=== PATIENT | female | born 1995 | race Caucasian/White ===

== ENCOUNTER 2018-07-05 08:55 | Outpatient (CLI) | payer BC, SELFPAY ==
[2018-07-05 09:34] LABS: HCT 41.8 % (36.0-46.0); HGB 14.1 g/dL (12.0-15.5); Mean Corp. HGB Concentration 33.7 g/dL (32.0-36.0); Mean Corpuscular Hemoglobin 30.7 pg (27.0-33.0); Mean Corpuscular Volume 90.9 fL (80-95); Mean Platelet Volume 10.9 fL (8.0-11.0); Platelet Count 218 x1000/uL (130-400); RBC Distribution Width 12.4 % (11.7-14.6)
[2018-07-05 09:54] LABS: Hemoglobin A1C 5.2 % (4.5-6.2)
[2018-07-05 10:21] LABS: Iron 54 ug/dL (50-175)
[2018-07-05 10:32] LABS: ALT 21 U/L (12-78); AST 15 U/L (15-37); Alkaline Phosphatase 54 U/L (46-116); Anion Gap 10.4 mmol/L (3-11); BUN 15 mg/dL (7-18); Bilirubin, Total 0.5 mg/dL (0.2-1.0); CO2 27.6 mmol/L (21.0-32.0); CREATININE 0.94 mg/dL (0.55-1.02); Calcium 9.3 mg/dL (8.5-10.1); Chloride 104 mmol/L (98-107); Ferritin 68 ng/mL (8-388); Glucose 64 mg/dL (70-100); Potassium 4.3 mmol/L (3.5-5.1); Sodium 142 mmol/L (136-145); TSH (W/Ref FT4) 1.59 uIU/mL (0.358-3.74); Total Protein 7.3 g/dL (6.4-8.2)
== END 2018-07-05 09:15 ==
PROVIDERS: PCP Family Medicine; Visit Provider Family Medicine
DX: J45.991 Cough variant asthma (principal); R53.83 Other fatigue
CPT/HCPCS: 36415; 80053; 85027; 82728; 83036; 83540; 84443

== ENCOUNTER 2019-04-03 15:21 | Outpatient (CLI) | payer OTHER, SELFPAY ==
[2019-04-04 11:02] LABS: Hepatitis B Surface Ag Negative (NEGAT); Hepatitis C Ab w Rflx HCV PCR Negative (NEGAT)
[2019-04-04 11:12] LABS: HIV-1/2 Ag & Ab Screen Negative (NEGAT)
[2019-04-05 10:29] LABS: Syphilis Total Ab w/Reflex Nonreactive (Nonreactive)
[2019-04-05 12:29] LABS: HSV Type 1 Ab, IgG Negative; HSV Type 2 Ab, IgG Negative
== END 2019-04-03 15:41 ==
PROVIDERS: PCP Family Medicine; Visit Provider Nurse Practitioner Women's Health
DX: Z11.3 Encounter for screening for infections with a predominantly sexual mode of transmission (principal); Z11.4 Encounter for screening for human immunodeficiency virus [HIV]; Z11.59 Encounter for screening for other viral diseases
CPT/HCPCS: 36415; 86803; 87340; 87389; 86695; 86696; 86780

== ENCOUNTER 2019-04-03 16:36 | Outpatient (REF) | payer OTHER, SELFPAY ==
[2019-04-05 15:45] LABS: Chlamydia Result Negative (Negative); GC Result Negative (Negative); Specimen Description CERVIX
== END 2019-04-03 16:56 ==
LOC: LBN 16:36
PROVIDERS: PCP Family Medicine; Visit Provider Nurse Practitioner Women's Health
DX: Z11.3 Encounter for screening for infections with a predominantly sexual mode of transmission (principal)
CPT/HCPCS: 87491; 87591

== ENCOUNTER 2019-04-08 01:41 | Outpatient (CLI) | payer OTHER, SELFPAY ==
--- NOTE | 2019-04-08 07:43 | DI.US_ITS ---
EXAM: US PELVIS TRANSVAGINAL CLINICAL HISTORY: R sided pelvic pain, hx ovarian cyst,R10.2 TECHNIQUE: Ultrasound performed using standard protocol. COMPARISON: No exams were available for comparison FINDINGS: The uterus measures 6.8 cm in length, 2.7 cm in height and 4.0 cm in width with an endometrial stripe thickness of 3.1 mm. A small quantity of fluid is noted in the cervix. Right ovary measures 3.6 x 2.0 x 1.5 cm and contains multiple follicular cysts. The dominant follicle in the right ovary measure s up to 1.8 cm. The left ovary was not visualized due to overlying bowel. Right kidney measures 10. 4 x 3.6 x 5.1 cm. The left kidney measures 10 x 5.1 x 4.5 cm. IMPRESSION: A small quantity of fluid is noted in the cervix. Multiple follicles are identified in the right ovar y, the largest of which measures 1.8 cm. The left ovary was not visualized.
== END 2019-04-08 02:01 ==
PROVIDERS: PCP Family Medicine; Visit Provider Nurse Practitioner Women's Health
DX: R10.2 Pelvic and perineal pain (principal); N83.01 Follicular cyst of right ovary
CPT/HCPCS: 76830; 76856

== ENCOUNTER 2019-05-27 00:09 | Outpatient (CLI) | payer OTHER, SELFPAY ==
--- NOTE | 2019-05-27 08:01 | DI.US_ITS ---
EXAM: US PELVIS TRANSVAGINAL CLINICAL HISTORY: Chronic pelvic pain, L>R TECHNIQUE: Ultrasound performed using standard protocol. Transabdominal and transvaginal exams wer e performed. COMPARISON: No exams were available for comparison FINDINGS: The uterus measures 6.8 x 2.8 x 3.2 cm. The endometrial stripe measures 2 millimeters in thickness. T here is a 3.6 centimeter hypoechoic lesion of the left ovary which is not ideally seen either transab dominally or transvaginally. This may represent a cyst or dominant follicle. The right ovary is unrem arkable. There is no evidence of free fluid or hydronephrosis. IMPRESSION: 3.6 centimeter cyst of the left ovary. It was not ideally seen on this exam. A follow-up exam could be considered.
== END 2019-05-27 00:29 ==
PROVIDERS: PCP Family Medicine; Visit Provider Nurse Practitioner Women's Health
DX: R10.2 Pelvic and perineal pain (principal); N83.292 Other ovarian cyst, left side
CPT/HCPCS: 76830; 76856

== ENCOUNTER 2019-08-20 11:25 | Outpatient (CLI) | payer OTHER, SELFPAY ==
[2019-08-20 13:04] LABS: HCT 41.5 % (36.0-46.0); HGB 13.9 g/dL (12.0-15.5); Mean Corp. HGB Concentration 33.5 g/dL (32.0-36.0); Mean Corpuscular Hemoglobin 30.1 pg (27.0-33.0); Mean Corpuscular Volume 89.8 fL (80-95); Mean Platelet Volume 11.2 fL (8.0-11.0); Platelet Count 242 x1000/uL (130-400); RBC 4.62 m/cumm (4.00-5.20); RBC Distribution Width 12.8 % (11.7-14.6); White Blood Cell Count 9.13 k/cumm (4.4-10.8)
[2019-08-20 13:21] LABS: Iron 84 ug/dL (50-170)
[2019-08-20 13:27] LABS: Ferritin 106 ng/mL (8-252)
--- NOTE | 2020-08-17 11:57 | NS.NUTBLAN_ITS ---
Date of service: 08/17/20 Time of Service: 11:58 Nutritional Consult ASSESSMENT: 25 year old female with nutrition consult to rule out dietary causes for abdominal pain. Spoke to Liseth on phone today after receiving a 4 day food record. Food record indicates 2-4 meals daily, often large portions. Liseth reports abdominal pain not related to meals or meal intake. Has tried gluten free diet in past without relief, has tried small portions in past with no relief. No family hx of food allergies, no changes in bowel habits. Digestion and bowel movement unremarkable. No routine exercise or stress relieving activities. BMI indicates class 2 obesity with 13 lbs weight gain in last year. INTERVENTION: Reviewed with Liseth reducing portion sizes and to eat 3 meals, 2 snacks daily and to maintain meal schedules from day to day. Suggestions provided have already been tried without success. At this time, dietary intervention have not reduced symptoms of abdominal pain. Encouraged daily exercise for stress relief as abdominal pain may be related to anxiety/stress. MONITORING AND EVALUATION: Liseth to follow up with magnetic tape typewriter operator rene. Contact information provided. Time Spent in Nutritional Counseling and Treatment: 15
== END 2019-08-20 11:45 ==
PROVIDERS: PCP Family Medicine; Visit Provider Family Medicine
DX: Z00.00 Encounter for general adult medical examination without abnormal findings (principal); R53.83 Other fatigue
CPT/HCPCS: 36415; 85027; 82728; 83540

== ENCOUNTER 2020-08-24 16:25 | Outpatient (REF) | payer BC, SELFPAY ==
--- NOTE | 2020-08-24 15:30 | PAPFT_PTH ---
PATIENT: Liseth Turpin LOC: [facility] U#:[id number] AGE/SX: 25/F ROOM: RE08/24/[address]: Ginny Salas MD, DC : 1995 BED: DIS: 08/24/2020 SPEC #: [id number] RECD: 08/25/20 12:42 STATUS: ISIDRO RELogan #: [id number] ANNMARIE: 08/24/20 15:[address]: Ginny Salas DEPT: [facility] Cytology RECD BY: Angi Moeller Tissues: 1 - CX/ENDOCX FOR PAP SMEARS Procedures: PAP THIN PREP/[facility] Screening Comments: [id number] (CHLAMYDIA/GC)
--- OUTSIDE RECORDS SUMMARY | 2020-08-24 16:29 | XMS_ITS ---
:1995 Author Care Team Providers Name Role Phone [facility] RECORDS Primary Care Provider [phone] AMADO MILLS Primary Care Provider [phone] Allergies Code Code System Name Reaction Severity Status Onset NKDA ? Medications Name Status Start Date Stop Date ? ? escitalopram 20 mg tablet Active ? Not av ailable Take 1 tablet every day by oral route. modafinil 200 mg tablet Active ? Not avai lable TAKE 1 TABLET BY MOUTH ONCE DAILY Nexplanon 68 mg subdermal implant Active ? Not available Inject by subcutaneous route. Ritalin 10 mg tablet Completed ? 11/15/2018 Take 1 tablet twice a day by oral route. Symbicort 80 mcg-4.5 mcg/actuation HFA aerosol inhaler Completed ? 09/24/2018 Inhale 2 puffs twice a day by inhalation route. Ventolin HFA 90 mcg/actuation aerosol inhaler Active ? Not available Inhale 2 puffs every 4 hours by inhalation route as needed. Problems Name Status Onset Date Source ? Major Depressive Disorder Active 07/02/2018 ? Hypersomnia Active 07/02/2018 ? Asthma Active 07/02/2018 ? Fatigue Active 07/02/2018 ? Restless Legs Active 07/05/2018 ? Excessive Daytime Sleepiness - Normal Night Active 06/19 ? Sleep Tachycardia Active 05/21/2019 ? Procedures None recorded. Results Lab Results Date Name Specimen Result Interpretation Description Value Range Status Address ? 08/29/2018 Drug UR - Thc negative neg (50 Final [place] Screen, NG/mL NG/mL) Hospital Lab Urine NG/mL (Internal) : [address] ? ? UR - Pcp negative neg (25 Final [place] NG[place]mL) [facility] L ab (Internal) : [address] ? ? UR - Dani negative neg (150 Final [place] NG/mL) Hospital L ab (Internal) : [address] ? ? UR - Met negative neg (500 Final [place] NG/mL) Hospital L ab (Internal) : [address] [place] ? ? UR - Opi negative neg (100 Final [place] NG/mL) Hospital L ab (Internal) : [address] [place] ? ? UR - Amp negative neg (500 Final [place] NG/mL) Hospital L ab (Internal) : [address] [place] ? ? UR - Bzo negative neg (150 Final [place] NG/mL) Hospital L ab (Internal) : [address] ? ? UR - Tca negative neg (300 Final [place] NG/mL) Hospital L ab (Internal) : [address] [place] ? ? UR - Mtd negative neg (200 Final [place] NG/mL) Hospital L ab (Internal) : [address] ? ? UR - Bar negative neg (200 Final [place] NG/mL) Hospital L ab (Internal) : [address] ? ? UR - Oxy negative neg (100 Final [place] NG/mL) Hospital L ab (Internal) : [address] [place] ? ? UR - Ppx negative neg (300 Final [place] NG/mL) Hospital L ab (Internal) : [address] ? ? 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 Social History Tobacco Smoking Status Never Smoker Vaccine List None recorded. Plan of Care Reminders Provider Appointments None ? ? recorded. Lab None ? ? recorded. Referral None ? ? recorded. Procedures None ? ? recorded. Surgeries None ? ? recorded. Imaging None ? ? recorded. Vitals 05/21/2019 08:30AM Office 15 Height Weight BMI Blood Pressure 167.64 cm 97.07 kg 34.5 kg/m2 124/82 mm[Hg] 11/15/2018 08:30AM Office 30 Height Weight BMI Blood Pressure 167.64 cm 95.12 kg 33.8 kg/m2 100/60 mm[Hg] 09/24/2018 09:15AM Office 30 Height Weight BMI Blood Pressure 167.64 cm 92.99 kg 33.1 kg/m2 122/70 mm[Hg] 07/05/2018 08:30AM New Patient 45 Height Weight BMI Blood Pressure 167.64 cm 90.04 kg 32 kg/m2 120/88 mm[Hg]
[2020-08-26 14:20] LABS: Chlamydia Result Positive (Negative); GC Result Negative (Negative)
== END 2020-08-24 16:26 | disposition home or self-care (01) ==
LOC: LBN 16:25
PROVIDERS: PCP Family Medicine; Visit Provider Family Medicine
DX: Z11.3 Encounter for screening for infections with a predominantly sexual mode of transmission (principal); Z12.4 Encounter for screening for malignant neoplasm of cervix
CPT/HCPCS: 87491; 87591; 88142

== ENCOUNTER 2020-10-05 15:22 | Outpatient (REF) | payer BC, SELFPAY ==
[2020-10-05 18:36] LABS: TSH (W/Ref FT4) 2.87 uIU/mL (0.36-3.74)
[2020-10-07 14:24] LABS: Chlamydia Result Negative (Negative); GC Result Negative (Negative)
== END 2020-10-05 15:23 | disposition home or self-care (01) ==
LOC: LBN 15:22
PROVIDERS: PCP Nurse Practitioner Adult Health; Visit Provider Nurse Practitioner Adult Health
DX: E66.9 Obesity, unspecified (principal); A56.2 Chlamydial infection of genitourinary tract, unspecified
CPT/HCPCS: 87491; 87591; 84443

== ENCOUNTER 2022-02-23 18:18 | Outpatient (REF) | payer BC, SELFPAY | END 2022-02-23 18:19 | disposition home or self-care (01) | LOC: LBN 18:18 | PROVIDERS: PCP Nurse Practitioner Adult Health; Visit Provider Nurse Practitioner Adult Health | DX: Z11.3 Encounter for screening for infections with a predominantly sexual mode of transmission (principal) | CPT/HCPCS: 87491; 87591; 87480; 87510; 87660 ==

== ENCOUNTER → 2022-03-01 14:21 | Outpatient (CLI) | payer BC, SELFPAY ==
--- NOTE | 2022-03-01 09:30 | DI.RAD_ITS ---
Exam(s) XR CERVICAL SPINE COMP 4-5V EXAM: XR CERVICAL SPINE COMP 4-5V CLINICAL HISTORY: vertebral alignment M54.2 CERVICALGIA NECK PAIN. TECHNIQUE: 2D digital imaging was performed. COMPARISON: No exams were available for comparison FINDINGS: BONES: No fracture or destructive lesion. Vertebral bodies are unremarkable. DISKS: Intervertebral disc spaces are maintained. ALIGNMENT: Cervical spinal alignment is within normal limits. The odontoid and atlantoaxial articulat ions are normal. SOFT TISSUE: Normal. The lung apices are clear. IMPRESSION: Unremarkable radiographs of the cervical spine. DATA REPOSITORY: RADIATION DOSE DELIVERED:
--- NOTE | 2022-03-01 09:30 | DI.RAD_ITS ---
Exam(s) XR THORACIC SPINE COMPLETE EXAM: XR THORACIC SPINE COMPLETE CLINICAL HISTORY: vertebral alignment M54.6 PAIN IN T SPINE. TECHNIQUE: 2D digital imaging was performed. Three views. COMPARISON: CR XR CERVICAL SPINE COMP 4-5V from 03/01/2022 FINDINGS: BONES: There is no fracture or destructive lesion. The vertebral bodies and posterior elements are un remarkable. ALIGNMENT: Within normal limits. DISKS: Interverebral disc spaces are maintained. SOFT TISSUE: Visualized lungs are clear. IMPRESSION: Unremarkable radiographs of the thoracic spine. DATA REPOSITORY: RADIATION DOSE DELIVERED:
== END ==
PROVIDERS: PCP Nurse Practitioner Adult Health; Visit Provider Nurse Practitioner Family
DX: M54.6 Pain in thoracic spine (principal); M54.2 Cervicalgia
CPT/HCPCS: 72050; 72072

== ENCOUNTER 2022-03-02 17:47 | Outpatient (REF) | payer BC, SELFPAY ==
[2022-03-04 15:15] LABS: Chlamydia Result Negative (Negative); GC Result Negative (Negative)
== END 2022-03-02 17:48 | disposition home or self-care (01) ==
LOC: LBN 17:47
PROVIDERS: PCP Nurse Practitioner Adult Health; Visit Provider Nurse Practitioner Adult Health
DX: Z11.3 Encounter for screening for infections with a predominantly sexual mode of transmission (principal)
CPT/HCPCS: 87491; 87591

== ENCOUNTER 2022-08-16 09:44 | Outpatient (REF) | payer BC, SELFPAY ==
[2022-08-16 17:27] LABS: Influenza A PCR Negative (Negative); Influenza B PCR Negative (Negative); RSV PCR Negative (Negative)
[2022-08-16 17:48] LABS: COVID-19 PCR Positive (Negative)
[2022-08-16 17:49] LABS: Source Nasopharynx
== END 2022-08-16 09:45 | disposition home or self-care (01) ==
LOC: LBN 09:44
PROVIDERS: PCP Nurse Practitioner Adult Health; Visit Provider Nurse Practitioner
DX: J06.9 Acute upper respiratory infection, unspecified (principal); Z20.822 Contact with and (suspected) exposure to COVID-19
CPT/HCPCS: 87637

== ENCOUNTER 2024-02-05 03:49 | Outpatient (CLI) | payer BC, SELFPAY ==
[2024-02-05 10:05] LABS: Anion Gap 8.7 mmol/L (3-11); BUN 13 mg/dL (7-18); CO2 26.3 mmol/L (21.0-32.0); CREATININE 1.3 mg/dL (0.55-1.02); Calcium 9.2 mg/dL (8.5-10.1); Chloride 103 mmol/L (98-107); Glucose 89 mg/dL (74-106); Sodium 138 mmol/L (136-145)
== END 2024-02-05 03:50 | disposition home or self-care (01) ==
LOC: LBO 03:49
PROVIDERS: Absent Provider Nurse Practitioner Adult Health; PCP Nurse Practitioner Adult Health; Referring Provider Nurse Practitioner Adult Health; Visit Provider Nurse Practitioner Adult Health
DX: Z79.899 Other long term (current) drug therapy (principal); F90.2 Attention-deficit hyperactivity disorder, combined type
CPT/HCPCS: 36415; 80048

== ENCOUNTER 2024-02-28 18:18 | Outpatient (REF) | payer BC, SELFPAY ==
--- NOTE | 2024-02-28 18:30 | PAPFT_PTH ---
PATIENT: Liseth Turpin LOC: [facility] U#:[id number] AGE/SX: 28/F ROOM: RE02/28/[address]: Louisa Marcos APRN : 1995 BED: DIS: 02/28/2024 SPEC #: [id number] RECD: 02/29/24 12:57 STATUS: ISIDRO RELogan #: [id number] ANNMARIE: 02/28/24 18:[address]: Louisa Marcos DEPT: [facility] Cytology RECD BY: Angi Moeller Tissues: 1 - CX/ENDOCX FOR PAP SMEARS Procedures: PAP THIN PREP/[facility] Screening Comments: [id number]
[2024-03-01 13:54] LABS: Chlamydia Result Negative (Negative); GC Result Negative (Negative)
== END 2024-02-28 18:19 | disposition home or self-care (01) ==
LOC: LBN 18:18
PROVIDERS: PCP Nurse Practitioner Adult Health; Visit Provider Nurse Practitioner Adult Health
DX: Z11.3 Encounter for screening for infections with a predominantly sexual mode of transmission (principal); Z12.4 Encounter for screening for malignant neoplasm of cervix; Z11.51 Encounter for screening for human papillomavirus (HPV); F90.2 Attention-deficit hyperactivity disorder, combined type; Z79.899 Other long term (current) drug therapy; Z00.00 Encounter for general adult medical examination without abnormal findings
CPT/HCPCS: 87491; 87591; 88142; 87480; 87510; 87660

== ENCOUNTER 2024-05-31 01:12 | Outpatient (CLI) | payer BC, SELFPAY ==
[2024-05-31 10:35] LABS: Anion Gap 11.8 mmol/L (3-11); BUN 14 mg/dL (7-18); CO2 23.2 mmol/L (21.0-32.0); CREATININE 1.2 mg/dL (0.55-1.02); Chloride 107 mmol/L (98-107); Estimated GFR 63.23 (mL/min/1.73m2); Glucose 94 mg/dL (74-106); Potassium 3.9 mmol/L (3.5-5.1); Sodium 142 mmol/L (136-145)
== END 2024-05-31 01:13 | disposition home or self-care (01) ==
LOC: LBO 01:12
PROVIDERS: PCP Nurse Practitioner Adult Health; Visit Provider Nurse Practitioner Adult Health
DX: R79.89 Other specified abnormal findings of blood chemistry (principal)
CPT/HCPCS: 36415; 80048

== ENCOUNTER 2024-07-25 02:03 | Outpatient (CLI) | payer OTHER, SELFPAY ==
[2024-07-25 08:18] LABS: Abs Immature Grans 0.05 10^3/uL (0.0-0.06); Absolute Basophil Count 0.07 10^3/uL (0.0-0.2); Absolute Eosinophil Count 0.12 10^3/uL (0.0-0.7); Absolute Lymphocyte Count 2.03 10^3/uL (1.2-3.4); Absolute Monocyte Count 0.47 10^3/uL (0.1-0.8); Absolute Neutrophil Count 5.08 10^3/uL (1.2-6.7); Basophils % 0.9 %; Eosinophils % 1.5 %; HCT 41.1 % (36.0-46.0); HGB 13.8 g/dL (11.2-15.7); Immature Grans % 0.6 %; MCH 30.2 pg (27.0-33.0); MCHC 33.6 % (32.0-36.0); MCV 90 fL (80-95); MPV 10.9 fL (8.0-11.0); Platelet Count 247 10^3/uL (130-400); RBC 4.57 10^6/uL (3.93-5.22); RDW-SD 39.2 fL; WBC 7.82 10^3/uL (4.4-10.8)
[2024-07-25 08:23] LABS: Hemoglobin A1C 5.1 % (<5.7)
[2024-07-25 09:05] LABS: ALT 13 U/L (14-59); AST 14 U/L (15-37); Albumin 3.8 g/dL (3.4-5.0); Alkaline Phosphatase 44 U/L (46-116); Anion Gap 7.3 mmol/L (3-11); BUN 15 mg/dL (7-18); Bilirubin, Total 0.68 mg/dL (0.2-1.0); CO2 27.7 mmol/L (21.0-32.0); CREATININE 1.2 mg/dL (0.55-1.02); Calcium 8.9 mg/dL (8.5-10.1); Calculated LDL 127 mg/dL (<100); Chloride 104 mmol/L (98-107); Cholesterol 202 mg/dL (<200); Estimated GFR 63.23 (mL/min/1.73m2); Ferritin 141 ng/mL (8-252); Glucose 118 mg/dL (74-106); HDL Cholesterol 62 mg/dL (40-60); Potassium 3.8 mmol/L (3.5-5.1); Sodium 139 mmol/L (136-145); TSH 0.78 uIU/mL (0.36-3.74); Total Protein 7.1 g/dL (6.4-8.2); Triglyceride 68 mg/dL (<150)
[2024-07-25 09:25] LABS: FREE T4 0.99 ng/dL (0.76-1.46)
== END 2024-07-25 02:04 | disposition home or self-care (01) ==
LOC: LBO 02:03
PROVIDERS: PCP Nurse Practitioner Adult Health; Visit Provider Registered Nurse
DX: F90.2 Attention-deficit hyperactivity disorder, combined type (principal); F33.1 Major depressive disorder, recurrent, moderate; F41.1 Generalized anxiety disorder; Z51.81 Encounter for therapeutic drug level monitoring
CPT/HCPCS: 36415; 80053; 80061; 82306; 82728; 82746; 83036; 84439; 84443; 85025

== ENCOUNTER 2024-11-13 17:56 | Outpatient (REF) | payer OTHER, SELFPAY ==
[2024-11-15 12:11] LABS: Chlamydia Result Negative (Negative); GC Result Negative (Negative)
== END 2024-11-13 17:57 | disposition home or self-care (01) ==
LOC: LBN 17:56
PROVIDERS: PCP Nurse Practitioner Adult Health; Visit Provider Obstetrics & Gynecology
DX: Z20.2 Contact with and (suspected) exposure to infections with a predominantly sexual mode of transmission (principal)
CPT/HCPCS: 87491; 87591; 87480; 87510; 87660